=== PATIENT | male | born 1970 | race Caucasian/White ===

== ENCOUNTER 2023-03-23 07:59 | Day surgery (SDC) | payer MEDICAID ==
[~2023-03-23] VITALS: Ht 170.2 cm; Wt 92.5 kg
[2023-03-23] MEDS ORDERED: MEPERIDINE 100 MG INJ. 100 MG/ML VIAL ONE (08:57)
[2023-03-23] MEDS ORDERED: MIDAZOLAM HCL 5 MG/5 ML VIAL ONE (08:58)
[2023-03-23 09:08] VITALS: O2SAT 97
[2023-03-23] MEDS ORDERED: BENZOCAINE 20% 0.5mL UD SPRAY MM ONE (10:27)
[2023-03-23 14:25] VITALS: BP_SYST 126; PULSE 112; RESP 15
== END 2023-03-23 12:30 | disposition home or self-care (01) ==
LOC: SDS 07:59 → SMU 08:01 → SDS 12:30
PROVIDERS: ATTEND Internal Medicine
DX: K21.00 Gastro-esophageal reflux disease with esophagitis, without bleeding (principal); K29.50 Unspecified chronic gastritis without bleeding; K44.9 Diaphragmatic hernia without obstruction or gangrene; E11.9 Type 2 diabetes mellitus without complications; F17.210 Nicotine dependence, cigarettes, uncomplicated; Z79.84 Long term (current) use of oral hypoglycemic drugs; Z79.899 Other long term (current) drug therapy
CPT/HCPCS: 43239; 99152; 82962; 88305; 88312; 88313; G0378; J2250; J2175